=== PATIENT | female | born 1980 | race Caucasian/White ===

== ENCOUNTER 2020-04-19 14:50 | Emergency (ER) | payer MEDICAID ==
[~2020-04-19] VITALS: Ht 154.9 cm; Wt 59.0 kg
[2020-04-19 14:59] VITALS: BP 111/75
[2020-04-19] MEDS ORDERED: ACETAMINOPHEN 325MG TABLET PO ONE (15:30)
[2020-04-19] MEDS ORDERED: METOCLOPRAMIDE HCL 10MG TABLET PO ONE (15:30)
== END 2020-04-19 16:49 | disposition home or self-care (01) ==
LOC: ER 15:32
DX: R51.9 Headache, unspecified (principal); Z88.6 Allergy status to analgesic agent
CPT/HCPCS: 99283; J8597